=== PATIENT | male | born 1960 | race African-American/Black ===

== ENCOUNTER 2019-02-08 07:42 | Observation (INO) ==
[2019-02-08] MEDS ORDERED: NS 1,000 ML IV ONE ×2 (08:28→10:55)
[2019-02-08] MEDS ORDERED: REGLAN IV ONE (08:29)
--- NOTE | 2019-02-08 08:58 | Diag Imaging Result Doc PS360 ---
EXAM: CHEST-2 VIEWS INDICATION: dysphasia TECHNIQUE: 3 views COMPARISON: 11/18/2018 FINDINGS: The right chest port is in stable position. There is evidence of prior granulomatous disease, stable. The lungs are grossly clear. There is no discrete pleural fluid collection or pneumothorax. The cardiomediastinal silhouette and central vasculature are grossly unremarkable. IMPRESSION: No evidence of acute pathology by plain radiograph. Electronically signed by Stanislaw Allen 02/08/2019 8:56 AM
[2019-02-08 10:43] LABS: BASO% 0.3 % (0.0-0.8); EOS# 0.33 X1000 (0.0-0.7); EOS% 0.9 % (0.0-10.0); HEMATOCRIT 41.7 % (42.0-52.0); IMM GRAN# 2.06 X1000 (0.0-0.04); IMM GRAN% 5.6 % (0.0-0.5); LYMPH# 3.45 X1000 (1.2-3.4); LYMPH% 9.4 % (20.5-51.1); MCH 32.4 PG (27-31); MCHC 33.6 g/dL (33-37); MCV 96.5 FL (81-99); MONO# 2.78 X1000 (0.11-0.59); MONO% 7.6 % (1.7-9.3); MPV 11.9 FL (7.4-10.4); NEUT# 27.81 X1000 (1.4-6.5); NEUT% 76.2 % (42.2-75.2); PLT 146 X1000 (130-400); RBC 4.32 XMIL (4.7-6.1); RDW 13.6 % (11.5-14.5); WBC 36.53 X1000 (4.8-10.8)
[2019-02-08 10:47] LABS: AGAP 12; ALB/GLOB RATIO 1.2; ALBUMIN 3.7 g/dL (3.5-5.0); ALKALINE PHOSPHATASE 120 U/L (32-122); BUN 11 mg/dL (8-22); CALCIUM 9.4 mg/dL (8.8-10.2); CHLORIDE 102 mmol/L (98-107); COSMO 278; CREATININE 1.1 mg/dL (0.7-1.2); ESTIMATED GFR > 60; GLUCOSE 92 mg/dL (70-104); GOT 11 U/L (10-34); GPT 8 U/L (10-44); POTASSIUM 3.9 mmol/L (3.5-5.1); SODIUM 140 mmol/L (136-145); TCO2 26 mmol/L (25-35); TOTAL BILIRUBIN 0.57 mg/dL (0.20-1.00); TOTAL PROTEIN 6.9 g/dL (6.3-8.3)
[2019-02-08 11:06] LABS: INR 1.18; PROTIME 15.2 Seconds (11.0-16.0)
[2019-02-08 11:07] LABS: PTT 31.9 Seconds (22.3-41.8)
[2019-02-08 11:12] LABS: URINE SOURCE CLEAN CATCH
[2019-02-08 11:14] LABS: LYMPHS 8 % (21-51); MONO 2 % (1-9); SEGS 68 % (42-75)
[2019-02-08 11:15] LABS: BANDS 20 % (0-1); METAMYELOCYTES 2 %
[2019-02-08 11:20] LABS: BILIRUBIN URINE NEGATIVE (NEGATIVE); BLOOD URINE NEGATIVE (NEGATIVE); COLOR YELLOW; GLUCOSE URINE NEGATIVE (NEGATIVE); KETONE URINE NEGATIVE (NEGATIVE); LEUKOCYTES URINE NEGATIVE (NEGATIVE); NITRITE URINE NEGATIVE (NEGATIVE); PROTEIN URINE TRACE mg/dL (NEGATIVE); SP GRAVITY URINE 1.017; TURBIDITY URINE CLEAR (CLEAR); UR EPITHELIAL CELLS <10 /HPF (<10); URINE BACTERIA NEGATIVE /HPF; URINE RBC <10 /HPF (<10); URINE WBC <10 /HPF (<10); UROBILINOGEN URINE 2 mg/dL (NORMAL)
[2019-02-08] MEDS ORDERED: NS 500 ML IV ONE (11:30)
[2019-02-08 13:32] LABS: BASO# 0.08 X1000 (0.0-0.2); BASO% 0.2 % (0.0-0.8); EOS# 0.34 X1000 (0.0-0.7); HEMATOCRIT 38.1 % (42.0-52.0); HEMOGLOBIN 12.8 g/dL (14.0-18.0); IMM GRAN# 2.03 X1000 (0.0-0.04); IMM GRAN% 5.8 % (0.0-0.5); LYMPH# 3.62 X1000 (1.2-3.4); LYMPH% 10.4 % (20.5-51.1); MCH 32.6 PG (27-31); MCHC 33.6 g/dL (33-37); MCV 96.9 FL (81-99); MONO# 2.53 X1000 (0.11-0.59); MONO% 7.3 % (1.7-9.3); MPV 11.2 FL (7.4-10.4); NEUT# 26.21 X1000 (1.4-6.5); NEUT% 75.3 % (42.2-75.2); PLT 128 X1000 (130-400); RBC 3.93 XMIL (4.7-6.1); RDW 13.6 % (11.5-14.5); WBC 34.81 X1000 (4.8-10.8)
--- NOTE | 2019-02-08 14:34 | PROVIDER DOCUMENTATION ---
This chart was entered by Tonia Wood Scribe, acting as scribe for Oscar Cabezas DO. HPI-EENT General - General Chief Complaint: Foreign Body/Throat Stated Complaint: CANT SWALLOW HIS FOOD Time Seen by Provider: 02/08/19 08:21 Source: patient Allergies/Adverse Reactions: Patient Allergies Allergy/AdvReac Type Severity Reaction Status Date / Time No Known Allergies Allergy Verified 02/08/19 09:05 Home Medications: Home Medication List Medication Instructions Recorded Confirmed Last Taken Type Acetaminophen with Codeine 1 ea PO 4XDAY PRN PRN 11/17/18 02/08/19 10/19/18 History [Tylenol with Codeine #3] Aspirin 325 mg PO DAILY 11/17/18 02/08/19 11/12/18 History Chlorpromazine [Thorazine] 5 mg PO Q8HR 11/17/18 02/08/19 11/14/18 History Cyanocobalamin (Vitamin B-12) 1,000 mcg PO DAILY 11/17/18 02/08/19 11/14/18 H istory [Vitamin B-12] Mag Hydrox/Aluminum Hyd/Simeth 355 ml PO PRN PRN 11/17/18 02/08/19 11/14/18 History [Mi-Acid 400-400-40 mg/10 ml Lq] Pravastatin Sodium 40 mg PO DAILY 11/17/18 02/08/19 11/14/18 History Scopolamine 1.5 mg/72 Hr Patch 1 ea TD Q72H 11/17/18 02/08/19 11/14/18 History [Transderm-Scop] Pegfilgrastim [Neulasta] 6 mg SQ DIRECTED 02/08/19 02/08/19 Unknown History - History of Present Illness-EENT General Nature of Presenting Problem: 58 y/o male with history of throat cancer presents to the ED with complaint of difficulty swallowing. The patient states he ate chicken last night which he feels got stuck in his throat and he has not been able to swallow since that time. He does report swallow function study performed at the beginning of January which showed no restrictions. EENT Location: reports: throat Onset/Duration: reports: last night Timing: reports: still present Prearrival Treatment: Initiated no prearrival treatment Associated Symptoms: reports: poor fluid intake, poor solids intake, other (dysphagia) Locality of Occurance: Home - Throat/Dental Throat/Dental Problem Symptoms: reports: unable to swallow Throat/Dental Problem Context: reports: foreign body Review of Systems - Adult - REVIEW OF SYSTEMS - ADULT Constitutional: denies: chills, fever, fatique Eyes: reports: no symptoms reported Ears, Nose, Mouth & Throat: reports: other (dysphagia). denies: epistaxis, sinus problem Cardiovascular: reports: no symptoms reported Respiratory: denies: hemoptysis, shortness of breath, wheezing Gastrointestinal: denies: diarrhea, nausea, vomiting Genitourinary: reports: no symptoms reported Musculoskeletal: reports: no symptoms reported Integumentary: reports: no symptoms reported Neurological: reports: no symptoms reported Psychiatric: reports: no symptoms reported Endocrine: reports: no symptoms reported Hematologic/Lymphatic: reports: no symptoms reported Allergic/Immunologic: reports: no symptoms reported All Other Systems: Reviewed and Negative Past History - Adult - PAST MEDICAL HISTORY-ADULT Review of Records: reports: Old Records Reviewed, Nursing Assessment Review, Medications Reviewed Major Childhood Illnesses: reports: denies history Cardiovascular: reports: denies history Respiratory: reports: COPD Gastrointestinal: reports: other (cancer esophageal) Obstetrical/Gynecological: reports: denies history Genitourinary: reports: denies history Musculoskeletal: reports: denies history Neurological: reports: CVA, stroke deficits Endocrine/Immune: reports: cancer (esophageal) Other Conditions: reports: denies history - PRIOR SURGERIES/PROCEDURES Surgical/Procedure History: reports: reviewed, not pertinent - PRIOR HOSPITALIZATIONS Prior Hospitalizations: reports: none - IMMUNIZATION STATUS Childhood Immunizations: UTD Flu Vaccine: See Nurse Assessment - FAMILY HISTORY Family History: reviewed, not pertinent Physical Exam- EENT - Physical Exam EENT Initial Vital Signs Reviewed: Yes General Appearance: alert, no apparent distress Ear Exam: bilateral ear: TM normal Throat Exam: normal mouth inspection (allowing for some missing teeth), pharynx normal. negative: foreign body Neck: full range of motion, supple Respiratory: lungs clear, normal breath sounds, no accessory muscle use. negat eun: respiratory distress Cardiovascular: regular rate, rhythm, no edema Abdominal Exam: non tender, soft Extremity: no pedal edema Integumentary: normal color, warm/dry Neurologic: grossly normal Progress - PLAN OF CARE/RESULTS Progress/Plan/Lab Results: Vital Signs - 8 hr 02/08/19 07:48 02/08/19 11:48 Temperature 98.9 F 97.7 F Pulse Rate 92 H 85 Respiratory Rate 18 20 Blood Pressure 129/84 118/73 O2 Sat by Pulse Oximetry 97 97 Laboratory Results - last 24 hr 02/08/19 02/08/19 02/08/19 10:00 10:00 10:00 WBC 36.53 H RBC 4.32 L Hgb 14.0 Hct 41.7 L MCV 96.5 MCH 32.4 H MCHC 33.6 RDW Std Deviation 13.6 Plt Count 146 MPV 11.9 H Immature Gran % (Auto) 5.6 H Neut % (Auto) 76.2 H Lymph % (Auto) 9.4 L Clinch % (Auto) 7.6 Eos % (Auto) 0.9 Baso % (Auto) 0.3 Immature Gran # (Auto) 2.06 H Neut # (Auto) 27.81 H Lymph # (Auto) 3.45 H Clinch # (Auto) 2.78 H Eos # (Auto) 0.33 Baso # (Auto) 0.10 Segmented Neutrophils 68 Band Neutrophils 20 H Lymphocytes 8 L Monocytes 2 Metamyelocytes 2 Pathologist Review PT INR PTT (Actin FS) Sodium 140 Potassium 3.9 Chloride 102 Carbon Dioxide 26 Anion Gap 12 BUN 11 Creatinine 1.1 Estimated GFR/1.73 m2 > 60 BUN/Creatinine Ratio 10 Glucose 92 Calculated Osmolality 278 Calcium 9.4 Magnesium 2.0 Total Bilirubin 0.57 AST 11 ALT 8 L Alkaline Phosphatase 120 Creatine Kinase 31 Troponin T Total Protein 6.9 Albumin 3.7 Globulin 3.2 Albumin/Globulin Ratio 1.2 Plasma Lactate Urine Source Urine Color Urine Turbidity Urine pH Ur Specific Ketchum Urine Protein Ur Glucose (Stick) Ur Ketones (Stick) Urine Blood Urine Nitrite Urine Bilirubin Urobilinogen Dipstick Urine Leukocytes Urine WBC (Auto) Urine RBC (Auto) U Epithel Cells (Auto) Urine Bacteria (Auto) 02/08/19 02/08/19 02/08/19 10:00 10:00 11:01 WBC RBC Hgb Hct MCV MCH MCHC RDW Std Deviation Plt Count MPV Immature Gran % (Auto) Neut % (Auto) Lymph % (Auto) Clinch % (Auto) Eos % (Auto) Baso % (Auto) Immature Gran # (Auto) Neut # (Auto) Lymph # (Auto) Clinch # (Auto) Eos # (Auto) Baso # (Auto) Segmented Neutrophils Band Neutrophils Lymphocytes Monocytes Metamyelocytes Pathologist Review PT 15.2 INR 1.18 PTT (Actin FS) 31.9 Sodium Potassium Chloride Carbon Dioxide Anion Gap BUN Creatinine Estimated GFR/1.73 m2 BUN/Creatinine Ratio Glucose Calculated Osmolality Calcium Magnesium Total Bilirubin AST ALT Alkaline Phosphatase Creatine Kinase Troponin T < 0.010 Total Protein Albumin Globulin Albumin/Globulin Ratio Plasma Lactate Urine Source CLEAN CATCH Urine Color YELLOW Urine Turbidity CLEAR Urine pH 8.0 Ur Specific Ketchum 1.017 Urine Protein TRACE A Ur Glucose (Stick) NEGATIVE Ur Ketones (Stick) NEGATIVE Urine Blood NEGATIVE Urine Nitrite NEGATIVE Urine Bilirubin NEGATIVE Urobilinogen Dipstick 2 A Urine Leukocytes NEGATIVE Urine WBC (Auto) <10 Urine RBC (Auto) <10 U Epithel Cells (Auto) <10 Urine Bacteria (Auto) NEGATIVE 02/08/19 02/08/19 11:05 13:10 WBC 34.81 H RBC 3.93 L Hgb 12.8 L Hct 38.1 L MCV 96.9 MCH 32.6 H MCHC 33.6 RDW Std Deviation 13.6 Plt Count 128 L MPV 11.2 H Immature Gran % (Auto) 5.8 H Neut % (Auto) 75.3 H Lymph % (Auto) 10.4 L Clinch % (Auto) 7.3 Eos % (Auto) 1.0 Baso % (Auto) 0.2 Immature Gran # (Auto) 2.03 H Neut # (Auto) 26.21 H Lymph # (Auto) 3.62 H Clinch # (Auto) 2.53 H Eos # (Auto) 0.34 Baso # (Auto) 0.08 Segmented Neutrophils Band Neutrophils Lymphocytes Monocytes Metamyelocytes Pathologist Review PT INR PTT (Actin FS) Sodium Potassium Chloride Carbon Dioxide Anion Gap BUN Creatinine Estimated GFR/1.73 m2 BUN/Creatinine Ratio Glucose Calculated Osmolality Calcium Magnesium Total Bilirubin AST ALT Alkaline Phosphatase Creatine Kinase Troponin T Total Protein Albumin Globulin Albumin/Globulin Ratio Plasma Lactate 1.1 Urine Source Urine Color Urine Turbidity Urine pH Ur Specific Ketchum Urine Protein Ur Glucose (Stick) Ur Ketones (Stick) Urine Blood Urine Nitrite Urine Bilirubin Urobilinogen Dipstick Urine Leukocytes Urine WBC (Auto) Urine RBC (Auto) U Epithel Cells (Auto) Urine Bacteria (Auto) Orders Category Date Time Status Cardiac Monitoring DIRECTED Care 02/08/19 10:54 Active Notify MD of + Sepsis Screen NOW Care 02/08/19 10:54 Active Notify Physician As Ordered Care 02/08/19 10:54 Active CHEST-2 VIEWS [RAD] Stat Exams 02/08/19 08:[address] NECK W/CONTRAST [CT] Stat Exams 02/08/19 14:[address] THORAX W/CONTRAST [CT] Stat Exams 02/08/19 14:32 Ordered BLOOD CULTURE [BLDCUL] Stat Lab 02/08/19 11:05 Received CBC WITH ELECTRONIC DIFF [HEME] Stat Lab 02/08/19 10:00 Completed CBC WITH ELECTRONIC DIFF [HEME] Stat Lab 02/08/19 13:10 Results CK PROFILE [SP CHEM] Stat Lab 02/08/19 10:00 Completed COMPREHENSIVE METABOLIC PANEL [CHEM] Stat Lab 02/08/19 10:00 Completed LACTATE, PLASMA [CHEM] Lab 02/08/19 11:05 Completed LACTATE, PLASMA [CHEM] Lab 02/08/19 13:49 Received LACTATE, PLASMA [CHEM] Lab 02/08/19 17:00 Uncollected MAGNESIUM [CHEM] Stat Lab 02/08/19 10:00 Completed PROTIME WITH INR [COAG] Stat Lab 02/08/19 10:00 Completed PTT [COAG] Stat Lab 02/08/19 10:00 Completed TROPONIN T Stat Lab 02/08/19 10:00 Completed URINALYSIS W/POSS RFLX CULT [URINALYSIS] Stat Lab 02/08/19 11:01 Completed 0.9% Sodium Chloride Inj [Ns] 1,000 ml Med 02/08/19 08:28 Discontinued IV 999 mls/hr 0.9% Sodium Chloride Inj [Ns] 1,000 ml Med 02/08/19 10:55 Discontinued IV 999 mls/hr 0.9% Sodium Chloride Inj [Ns] 500 ml Med 02/08/19 11:30 Discontinued IV 999 mls/hr Metoclopramide [Reglan] Med 02/08/19 08:29 Discontinued 5 mg IV NOW ONE Oxygen Device Stat Oth 02/08/19 10:54 Active 1115: [place] [address] without obvious source of infection. Will start septic protocol. Result Diagrams: 02/08/19 13:10 02/08/19 10:00 - XRAY 1 XRAY Study: Chest (EXAM: CHEST-2 VIEWS INDICATION: dysphasia TECHNIQUE: 3 views COMPARISON: 11/18/2018 FINDINGS: The right chest port is in stable position. There is evidence of prior granulomatous disease, stable. The lungs are grossly clear. There is no discrete pleural fluid collection or pneumothorax. The cardiomediastinal silhouette and central vasculature are grossly unremarkable. IMPRESSION: No evidence of acute pathology by plain radiograph. Electronically signed by Stanislaw Allen 02/08/2019 8:56 AM) - CONSULTS/PCP/HOSPITALIST Notification #1 *Consult/PCP/Hospitalist*: HospitalistEla Time Discussed: 14:30 Reason/Comments: WBC 36 w/unknown source Consult Disposition: Admit Departure - Departure Date of Disposition Decision: 02/08/19 Time of Disposition Decision: 14:32 DIAGNOSIS: Leukocytosis Disposition: ADMITTED INPATIENT 09 Certified Medical Emergency: Emergent Condition: Stable Referrals and Follow-Ups: None,PCP [Primary Care Provider] - Discharge Education: Steps to Quit Smoking, [id number] - Critical Care Note This patient required my direct & personal management of CC.: No Attestation - Physician/ MARNI Attestation Patient care was provided by Advanced Practice Provider:: No The physician spent face to face time with patient:: Yes Advanced Practice Provider documentation review:: Supervising physician onsite and consulted in the evaluation and care of this patient. The physician did have a face to face encounter with the patient. This chart was documented by the indicated scribe, (Tonia Wood, Collin) and accurately reflects the services I performed and decisions made by me, Oscar Cabezas DO, as attested by the provider's signature.
[2019-02-08 14:52] LABS: BANDS 4 % (0-1); LYMPHS 17 % (21-51); MONO 4 % (1-9); SEGS 75 % (42-75)
[2019-02-08] MEDS ORDERED: TYLENOL WITH CODEINE #3 PO PRN (16:06)
[2019-02-08] MEDS ORDERED: ZOFRAN IV PRN (16:06)
[2019-02-08] MEDS ORDERED: TYLENOL PO PRN (16:06)
[2019-02-08] MEDS ORDERED: TRANSDERM-SCOP TD SCH (16:06)
[2019-02-08] MEDS ORDERED: MAALOX PLUS LIQUID PO PRN (16:06)
--- NOTE | 2019-02-08 16:25 | HISTORY AND PHYSICAL ---
PRIMARY CARE PHYSICIAN: None. ONCOLOGIST: Dr. Barrett. CHIEF COMPLAINT: Got choked while eating chicken last night and began coughing, is currently being treated for an esophageal cancer. HISTORY OF PRESENTING ILLNESS: This is a 58-year-old male who presents to [facility] after he states he was eating chicken last night and it got choked, coughed it back up and continued to cough, is currently being treated for an esophageal cancer, had this esophageal cancer about 10 years ago was in remission and about 3 months ago it returned and he began chemotherapy again, received his last chemotherapy the of this week and also got a Neulasta injection. Has been having increased difficulty swallowing and it appears he had a modified barium swallow outpatient on 01/22/2019 that showed no significant abnormality of swallowing mechanism, prominent multilevel degenerative disk disease was noted. His workup was fairly benign except he did have a white blood cell count initially of 36.53. We rechecked it to verify that it was correct and it came back at 34.81 but again he did get a Neulasta shot during this week. His chest x-ray showed no evidence of acute pathology by plain radiograph. He is currently lying in the bed. Answers questions appropriately. Speech is clear. No difficulty swallowing or controlling his secretions but we are going to admit him for further evaluation and treatment and consult his oncologist. 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 PAST SURGICAL HISTORY: Of a port placement. FAMILY HISTORY: Reviewed and noncontributory. SOCIAL HISTORY: Currently lives with family. Smokes 8 cigarettes a day. Denies any alcohol or illicit drug use. ALLERGIES: He has no known drug allergies. HOME MEDICATIONS: He takes Tylenol with codeine #3 1 p.o. 4 times daily p.r.n., will hold his aspirin 325 mg p.o. daily, continue his Thorazine 5 mg p.o. q.8 hours, vitamin B12 1000 mcg p.o. daily, Mylanta p.o. p.r.n., Neulasta 6 mg subcu as directed will be held, pravastatin 40 mg p.o. daily and a scopolamine patch transdermally q.72 hours. LABORATORY DATA: Showed a white blood cell count of 36.53, recheck was 34.81, hemoglobin 14.0, hematocrit 41.7, platelets 146,000, PT and INR of 15.2 and 1.18. Sodium of 140, potassium 3.9, chloride 102, CO2 26, BUN of 11, creatinine 1.1, glucose 92. Cardiac enzymes were negative. Plasma lactate of 1.1. Urinalysis was negative. Chest x-ray showed no evidence of acute pathology by plain radiograph. REVIEW OF SYSTEMS: He denied any fever, chills, blurred vision, dizziness. He did have some difficulty swallowing his chicken last night but was able to expel it back up but continues to have a little mild nonproductive cough. Denied any shortness of breath, chest pain, abdominal pain, constipation, diarrhea or burning or hurting with urination. PHYSICAL EXAMINATION: On arrival he had a temperature of 98.9 degrees, pulse 92, respirations 18, blood pressure 129/84, saturating 97% on room air. GENERAL: This is a 58-year-old male who is lying in the bed and answers questions appropriately. HEENT: Normocephalic, atraumatic. Normal ENT inspection. Oropharynx and nares are clear. Pupils are equal, round, reactive to light, accommodation. Extraocular movements are intact. NECK: Normal inspection, normal range of motion. LUNGS: Clear to auscultation bilaterally with equal lung expansion and chest wall movement. HEART: Regular rate and rhythm. No murmurs, rubs, or gallops. ABDOMEN: Soft, nontender, nondistended. Bowel sounds are present x4 quadrants. MUSCULOSKELETAL: Moves all extremities well. NEUROLOGICAL: The cranial nerves 2-12 appear grossly intact. ASSESSMENT: 1. Some mild dysphagia now resolved. 2. Leukocytosis most likely secondary to receiving Neulasta. 3. Esophageal cancer, aware, treatment ongoing. 4. Tobacco abuse. OUR PLAN: He is going to be admitted to the medical unit, placed on a full liquid diet, telemetry. We are going to check a CT of the neck and thorax with contrast now, place on normal saline at 125 mL an hour. Continue his home medications as previously identified. Place on SCDs for DVT prophylaxis. Recheck a CBC, CMP in the a.m., is felt that the elevation in his white blood cell count may simply be from his Neulasta injection but will place him in, rule him out and further orders after seen by attending. Dictated by MISSY Rojas for Pranay Lowe MD cc: MISSY Rojas MD
--- NOTE | 2019-02-08 18:00 | HISTORY AND PHYSICAL ---
ADDENDUM: The patient was admitted for treatment. He has a history of esophageal cancer. He ate some chicken yesterday, got choked on it, but it eventually did pass. He is able to swallow now. Workup in the ER was remarkable for an elevated white count of 38,000. The patient is getting chemotherapy, and he did get treatment with Neulasta, which I think finished yesterday. Workup otherwise in the ER was unremarkable. We are going to place him in observation. CT his neck and chest and evaluate for any pathology. This may just be the side effect of the granulocyte colony- stimulating factor. Per Dr. Barrett, it may increase even further since he just finished his treatment. We will monitor him. If there is anything unusual on his scans, we may decide to initiate antibiotics or get a GI consultation. We will go and consult Dr. Barrett. This is a [id number] encounter note with Claire Goldsmith. cc: Pranay Lowe MD
--- NOTE | 2019-02-08 18:01 | Diag Imaging Result Doc PS360 ---
EXAM: CT THORAX W/CONTRAST INDICATION: Leukocytosis TECHNIQUE: This exam was performed using automated exposure control, adjustment of mA or kV according to patient size, and/or use of iterative reconstruction technique. COMPARISON: None. FINDINGS: There is mild subsegmental atelectasis and air trapping at the dependent portions of both lungs, mainly at the bases. There are several calcified granulomata in the left lung. There is mild fibrotic change at the right lung apex. Otherwise, the lungs are essentially clear. There is no pleural fluid collection and no pneumothorax. There is no cardiomegaly. There are calcified left hilar lymph nodes indicating prior granulomatous disease. There is no evidence of significant mediastinal or hilar lymphadenopathy, otherwise. There is focal irregular thickening involving the upper mid esophagus consistent with the given history of esophageal carcinoma. Limited views of the upper abdomen are essentially unremarkable. There is nothing that would suggest local bony metastatic disease to the thorax. IMPRESSION: 1.Mild subsegmental atelectasis and air trapping at the dependent portions of both lungs. 2.Focal irregular esophageal thickening at the upper mid esophagus consistent with the given history of esophageal carcinoma. 3.Other incidental/nonacute findings detailed above. Electronically signed by Stanislaw Allen 02/08/2019 5:58 PM
--- NOTE | 2019-02-08 18:09 | Diag Imaging Result Doc PS360 ---
EXAM: CT NECK W/CONTRAST INDICATION: Leukocytosis TECHNIQUE: This exam was performed using automated exposure control, adjustment of mA or kV according to patient size, and/or use of iterative reconstruction technique. COMPARISON: None. FINDINGS: The salivary glands and thyroid are unremarkable. There is a thrombus in the right internal jugular vein proximal to the port catheter. There is no evidence of significant cervical lymphadenopathy. There is circumferential thickening involving the upper mid esophagus consistent with the given history of esophageal carcinoma. Please see separate chest CT report performed concurrently. No other discrete mass is identified in the aerodigestive tract. No soft tissue abscess is identified in the neck. The paranasal sinuses are clear. IMPRESSION: 1.Right IJ vein thrombosis superior to the right port catheter. 2.Circumferential thickening involving the upper mid esophagus consistent with the history of esophageal carcinoma. Please see separate chest CT report performed at the same time. 3.No discrete abscess identified involving the soft tissues of the neck. Electronically signed by Stanislaw Allen 02/08/2019 6:07 PM
[2019-02-08] MEDS: NS 1,000 ML IV SCH (18:28)
[2019-02-08] MEDS ORDERED: THORAZINE PO SCH (21:00)
[2019-02-09] MEDS: NS 1,000 ML IV SCH ×3 (01:50→16:51)
[2019-02-09] MEDS ORDERED: THORAZINE PO PRN (05:15)
[2019-02-09 05:35] LABS: BASO# 0.12 X1000 (0.0-0.2); BASO% 0.3 % (0.0-0.8); EOS# 0.33 X1000 (0.0-0.7); EOS% 0.8 % (0.0-10.0); HEMOGLOBIN 13.2 g/dL (14.0-18.0); IMM GRAN# 3.67 X1000 (0.0-0.04); IMM GRAN% 9.1 % (0.0-0.5); LYMPH# 3.33 X1000 (1.2-3.4); LYMPH% 8.2 % (20.5-51.1); MCV 96.9 FL (81-99); MONO% 11.4 % (1.7-9.3); MPV 11.6 FL (7.4-10.4); NEUT# 28.47 X1000 (1.4-6.5); NEUT% 70.2 % (42.2-75.2); PLT 135 X1000 (130-400); RBC 4.13 XMIL (4.7-6.1); RDW 13.6 % (11.5-14.5); WBC 40.52 X1000 (4.8-10.8)
[2019-02-09 05:39] LABS: AGAP 14; ALB/GLOB RATIO 1.1; ALKALINE PHOSPHATASE 152 U/L (32-122); BUN 8 mg/dL (8-22); CALCIUM 8.4 mg/dL (8.8-10.2); CHLORIDE 105 mmol/L (98-107); COSMO 277; CREATININE 0.9 mg/dL (0.7-1.2); ESTIMATED GFR > 60; GLUCOSE 79 mg/dL (70-104); GOT 10 U/L (10-34); GPT 5 U/L (10-44); POTASSIUM 3.8 mmol/L (3.5-5.1); SODIUM 140 mmol/L (136-145); TCO2 21 mmol/L (25-35); TOTAL BILIRUBIN 0.53 mg/dL (0.20-1.00); TOTAL PROTEIN 5.7 g/dL (6.3-8.3)
[2019-02-09 07:50] LABS: BANDS 16 % (0-1); LYMPHS 8 % (21-51); MONO 10 % (1-9); SEGS 64 % (42-75)
[2019-02-09 07:51] LABS: HYPOCHROM 1+
[2019-02-09] MEDS: VITAMIN B-12 PO SCH (09:12)
[2019-02-09] MEDS ORDERED: XARELTO PO SCH (15:00)
--- NOTE | 2019-02-09 16:19 | HEMO/ONC CONSULTATION ---
DATE: 02/09/2019 ADMITTING PHYSICIAN: Dr. Lowe REQUESTING PHYSICIAN: Dr. Lowe We appreciate this consult. CHIEF COMPLAINT: Esophageal cancer. HISTORY OF PRESENT ILLNESS: Mr. Vince Torres a pleasant, 58-year-old male, well known to Dr. 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 The patient has had a positive treatment response. Currently on FOLFIRI and is status post cycle 6 on 02/02/2019. The patient also received Neulasta on 02/04/2019. PET scan on 01/30/2019 revealed a positive treatment response. The patient presented to [facility] Emergency Department secondary to significant dysphagia to solid foods. The patient was eating chicken and reports that he got choked and was able to cough it back up. The patient reports that his dysphagia has improved since the day of admission. He denies any further swallowing difficulty. We are consulted as the patient is well known to us with a history of esophageal cancer. PAST MEDICAL HISTORY: 1. COPD. 2. Stroke with left-sided weakness. 3. Esophageal cancer. PAST SURGICAL HISTORY: Port placement. FAMILY HISTORY: Negative for any hematologic or oncologic disease. SOCIAL HISTORY: The patient smokes 8 cigarettes daily. He does not use alcohol or illicit drugs. MEDICATIONS ON ADMISSION: 1. Percocet. 2. Thorazine. 3. Vitamin B12. 4. Mylanta. 5. Neulasta. 6. Scopolamine patch. ALLERGIES: The patient has no known drug allergies. REVIEW OF SYSTEMS: A 14 point review of systems was obtained and is negative except for mentioned in HPI. PHYSICAL EXAMINATION: General: Mr. Torres is a pleasant 58-year-old male lying supine in bed in no immediate distress. Vital Signs: Temperature 97.6, blood pressure 118/69, heart rate 80, and respirations are 20, O2 saturation 100% on room air. HEENT: Normocephalic, atraumatic. Mucous membranes are pink and moist. Sclerae anicteric. Extraocular movements intact. Neck: Supple. Lungs: Clear to auscultation bilaterally. Chest expansion is equal bilaterally. Cardiovascular: S1-S2 is heard without murmur, rub or gallop. Abdomen: Nondistended. Extremities: No clubbing, cyanosis, or edema. Dermatologic: No rashes, bruises or lesions. Neurologic: The patient is awake, alert, oriented x3. He does have left-sided weakness, status post right CVA. LABORATORY DATA: Hemoglobin 13.2, hematocrit 40.0, white blood cell count is 40.52, platelets 135,000. Sodium 140, potassium 3.8, chloride 105. CO2 is 21, BUN 8, creatinine 0.9, and glucose is 79, bilirubin 0.53, alkaline phosphatase 152, AST is 10, ALT is 5. IMAGING STUDIES: CT of the neck revealed a right internal jugular thrombosis superior to the right port catheter as well as upper middle esophagus circumferential thickening. CT of the chest reveals dependent atelectasis in bilateral lungs and upper esophageal. ASSESSMENT AND PLAN: 1. Recurrent squamous cell carcinoma of the esophagus with positive treatment response on PET scan on 01/30/2019. The patient is status post cycle 6 of FOLFIRI. Additionally, he received Neulasta on 02/04/2019. 2. Dysphagia much improved at this time. 3. Leukocytosis secondary to Neulasta effect. 4. 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 The patient will be placed on Xarelto 10 mg daily at this time. 5. Tobacco abuse. We will continue to encourage cessation. 6. We will follow along with you and make further recommendations pending outcomes. The above reflects the history, exam, assessment and plan of Dr. Barrett. Dictated by MISSY Deutsch for Frank Barrett MD cc: MISSY Deutsch MD
--- NOTE | 2019-02-09 20:24 | PROGRESS NOTE ---
DATE: 02/09/2019 SUBJECTIVE: Mr. Torres is feeling better. He is having no difficulty swallowing, eating 75% of his meals. OBJECTIVE: Vital signs: Blood pressure is 114/67 with heart rate of 78, respirations are 18, temperature is 98.2 degrees oral with room air saturations 99 to 100 percent. Cardiovascular: Regular rate and rhythm. S1 and S2 are appreciated. Extremities: He has no lower extremity edema. Calves are nontender bilateral with peripheral pulses palpable x4 extremities. Pulmonary: Breath sounds are clear with no increased work of breathing noted. Chest rises and falls symmetric with respiration. Gastrointestinal: Abdomen is soft, nontender, nondistended with bowel sounds in all 4 quadrants. Neurologic: He is alert and oriented x3. LABS: WBC is 40.5, with hemoglobin 13.2, hematocrit 40 and platelets of 135,000. Sodium 140, potassium 3.8, BUN 8, creatinine 0.9 with a glucose of 277. Blood cultures are pending. PROBLEM LIST: 1. Dysphagia, resolved. 2. Leukocytosis secondary to Neulasta. 3. 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 He has been followed by Dr. Barrett. 4. 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 He has been placed on Xarelto [address] Barrett. 5. Tobacco abuse. We will encourage smoking cessation. PLAN: The plan was discussed with Dr. Mixon. DISPOSITION: We are waiting on blood culture results for patient's disposition. Dictated by MISSY Snowden for Boogie Boyce MD cc: MISSY Snowden MD
[2019-02-09] MEDS ORDERED: PRAVACHOL PO SCH (21:00)
[2019-02-10] MEDS: NS 1,000 ML IV SCH ×2 (02:54→08:49)
[2019-02-10 06:27] LABS: AGAP 15; BUN 4 mg/dL (8-22); CALCIUM 8.8 mg/dL (8.8-10.2); CHLORIDE 106 mmol/L (98-107); COSMO 281; CREATININE 0.9 mg/dL (0.7-1.2); ESTIMATED GFR > 60; GLUCOSE 82 mg/dL (70-104); POTASSIUM 3.6 mmol/L (3.5-5.1); SODIUM 143 mmol/L (136-145); TCO2 22 mmol/L (25-35)
[2019-02-10 06:30] LABS: BASO# 0.18 X1000 (0.0-0.2); BASO% 0.4 % (0.0-0.8); EOS# 0.43 X1000 (0.0-0.7); EOS% 0.9 % (0.0-10.0); HEMATOCRIT 38.9 % (42.0-52.0); HEMOGLOBIN 13.2 g/dL (14.0-18.0); IMM GRAN# 1.89 X1000 (0.0-0.04); IMM GRAN% 4.1 % (0.0-0.5); LYMPH# 3.88 X1000 (1.2-3.4); LYMPH% 8.4 % (20.5-51.1); MCH 32.6 PG (27-31); MCHC 33.9 g/dL (33-37); MONO# 5.68 X1000 (0.11-0.59); MONO% 12.3 % (1.7-9.3); NEUT# 34.15 X1000 (1.4-6.5); NEUT% 73.9 % (42.2-75.2); PLT 141 X1000 (130-400); RBC 4.05 XMIL (4.7-6.1); RDW 13.7 % (11.5-14.5); WBC 46.21 X1000 (4.8-10.8)
[2019-02-10 07:55] VITALS: BP 128/71
[2019-02-10 08:17] LABS: BANDS 18 % (0-1); HYPOCHROM 2+; LYMPHS 8 % (21-51); MONO 8 % (1-9); NRBC 1 % (0-0); SEGS 64 % (42-75)
[2019-02-10] MEDS: VITAMIN B-12 PO SCH (08:49)
--- NOTE | 2019-02-10 20:30 | DISCHARGE SUMMARY ---
ADMISSION DATE: 02/08/2019 DISCHARGE DATE: 02/10/2019 ADMISSION DIAGNOSES: 1. Some mild dysphagia, now resolved. 2. Leukocytosis, most likely secondary to receiving Neulasta. 3. Esophageal cancer, treatment ongoing. 4. Tobacco abuse. DISCHARGE DIAGNOSES: 1. Dysphagia, resolved. 2. Leukocytosis secondary to Neulasta. Blood cultures negative. 3. 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 Barrett. 4. Right internal jugular vein thrombosis secondary to right port catheter, placed on Xarelto [address] Barrett. 5. Tobacco abuse. CONSULTATIONS: Dr. Barrett. SURGERY PROCEDURES: None. HOSPITAL COURSE: Mr. Vince Torres is a 58-year-old male with male with a medical history of esophageal cancer and stroke with left-sided weakness, presents to the Emergency Department at [facility] with complaints of choking after eating chicken the night before. He had a history of esophageal stricture in the past, but there were no indications that he needed esophageal stricture dilatation at this time, as apparently he was able to pass the chicken without any difficulties while he was here. He did have some leukocytosis. This is most likely secondary to receiving Neulasta and he had blood cultures obtained, which were negative, and he is going to be discharged home. DISCHARGE VITAL SIGNS: Temperature 97.7 degrees, heart rate 71, respiratory rate 18, blood pressure 128/71, O2 saturation 100% on room air. DISCHARGE PERTINENT IMAGING: Chest x-ray no evidence of acute pathology. Plain radiograph. Chest CT, mild subsegmental atelectasis and air trapping at the dependent portions of both lungs. Focal irregular esophageal thickening in the upper mid esophagus, consistent with the given history of esophageal carcinoma. CT: Right IJ vein thrombosis superior to the right port catheter. Circumferential thickening involving the upper mid esophagus, consistent with history of esophageal cancer. No abscess. Telemetry strip, sinus rhythm. DISCHARGE MEDICATIONS: 1. Thorazine 5 mg p.o. every 8 hours p.r.n. 2. Aspirin 325 mg p.o. daily. 3. Magnesium hydroxide 355 mL p.o. p.r.n. 4. Neulasta 6 mg subcutaneous as directed. 5. Pravastatin 40 mg p.o. daily. 6. Scopolamine patch every 72 hours. 7. Tylenol codeine once p.o. 4 times a day p.r.n. 8. Vitamin B12 1000 mcg p.o. daily. 9. Xarelto 10 mg p.o. daily. PHYSICIAN FOLLOWUP: Dr. Barrett. DIET: Full liquid, soft food. ACTIVITY: As tolerated. DISCHARGE INSTRUCTIONS: If your condition changes, contact physician and/or return to the emergency department. Changes may include, but not be limited to, shortness of breath, increased fatigue, excessive bleeding, unexplained weight loss or gain, unmanageable pain, signs or symptoms of infection. DISCHARGE DISPOSITION: Home. Dictated by MISSY Moreira for Boogie Boyce MD cc: MISSY Moreira MD MTDD
== END 2019-02-10 10:33 | disposition home or self-care (01) ==
LOC: ED 07:42 → EDIPHOLD 07:42 → SUATTDRO 15:40 → 1N 17:41
PROVIDERS: ATTEND Internal Medicine